=== PATIENT | male | born 1950 | race African-American/Black ===

== ENCOUNTER 2018-04-03 00:02 | Inpatient (IN) | payer OTHER, MEDICAID ==
[~2018-04-03] VITALS: Ht 177.8 cm; Wt 68.7 kg
[2018-04-03] MEDS ORDERED: IPRATROPIUM BROM 0.5 MG/2.5ML INH SOL NEB ONE ×2 (00:15→02:15)
[2018-04-03] MEDS ORDERED: ALBUTEROL SULF 2.5 MG/0.5ML(0.5%) NEB SOLN NEB ONE ×2 (00:15→02:15)
[2018-04-03 00:59] LABS: Basophils # (auto) 0 uL; Basophils % (auto) 0.7 % (0.0-2.0); Eosinophils # (auto) 0.2 uL; Eosinophils % (auto) 3.3 % (0.0-7.0); Hematocrit 39.9 % (41.0-53.0); Hemoglobin 13.1 g/dL (13.5-17.5); Lymphocytes # (auto) 2.5 uL; Lymphocytes % (auto) 34.9 % (10.0-50.0); Mean Corpuscular Hemoglobin 29.5 pg (28.0-32.0); Mean Corpuscular Hgb Conc. 32.8 g/dL (32.0-36.0); Mean Corpuscular Volume 90.2 fL (80.0-100.0); Monocytes # (auto) 0.6 uL; Monocytes % (auto) 8.4 % (0.0-12.0); Neutrophils # (auto) 3.8 uL; Neutrophils % (auto) 52.7 % (37.0-80.0); Nucleated Red Blood Cells % 0.1 %; Platelet Count (auto) 279 10^3/uL (140-450); Red Blood Cells 4.43 10^6/uL (4.5-5.90); Red Cell Distribution Width 15.4 % (11.8-14.3); White Blood Cell 7.3 10^3/uL (4.4-10.8)
[2018-04-03 01:16] LABS: Albumin 3.8 g/dL (3.4-5.0); Anion Gap 9 (5-15); Aspartate Aminotransferase 26 U/L (15-37); BUN/Creatinine Ratio 13.3; Blood Urea Nitrogen 15 mg/dL (7-18); Calcium 8.2 mg/dL (8.5-10.1); Carbon Dioxide 26 mmol/L (21-32); Chloride 104 mmol/L (98-107); GFR African American 83 mL/min; GFR Non-African American 69 mL/min; Glucose 92 mg/dL (74-106); Magnesium 2.7 mg/dL (1.6-2.6); Potassium 3.8 mmol/L (3.5-5.1); Sodium 139 mmol/L (136-145)
[2018-04-03 01:21] LABS: Alanine Aminotransferase 23 U/L (16-61); Alkaline Phosphatase 59 U/L (45-117); Bilirubin, Total 0.3 mg/dL (0.2-1.0); Total Protein 7.6 g/dL (6.4-8.2)
[2018-04-03] MEDS ORDERED: methylPREDNISolone SOD SUCC 125 MG/2 ML VL IV ONE (02:15)
[2018-04-03] MEDS ORDERED: CARISOPRODOL 350 MG TAB PO ONE (02:15)
[2018-04-03] MEDS ORDERED: ACETAMINOPHEN 325 MG TAB PO PRN (06:30)
[2018-04-03] MEDS ORDERED: ALBUTEROL SULF 2.5 MG/0.5ML(0.5%) NEB SOLN NEB PRN (06:30)
[2018-04-03] MEDS ORDERED: ONDANSETRON HCL 4 MG/2 ML VIAL IV PRN (06:30)
[2018-04-03] MEDS ORDERED: TEMAZEPAM 15 MG CAP PO PRN (06:30)
[2018-04-03] MEDS ORDERED: IPRATROPIUM BROM 0.5 MG/2.5ML INH SOL NEB PRN (06:30)
[2018-04-03 08:00] VITALS: BP 125/83
[2018-04-03 08:37] VITALS: BP 129/81
[2018-04-03] MEDS ORDERED: cefTRIAXone 1GM/50ML D5W 50 ML IV SCH (09:00)
[2018-04-03] MEDS: FAMOTIDINE 20 MG TAB PO SCH ×2 (10:39→21:25)
[2018-04-03] MEDS: HYDROcodone-ACET 5/325MG TAB PO PRN ×2 (10:40→20:26)
[2018-04-03 13:00] VITALS: BP 129/82
[2018-04-03] MEDS: IPRATROPIUM BROM 0.5 MG/2.5ML INH SOL NEB SCH ×2 (14:53→18:53)
[2018-04-03] MEDS: ALBUTEROL SULF 2.5 MG/0.5ML(0.5%) NEB SOLN NEB SCH ×2 (14:53→18:53)
[2018-04-03 16:47] VITALS: BP 138/81
[2018-04-03] MEDS: methylPREDNISolone SOD SUCC 40 MG/ML VL IV SCH ×2 (18:23→23:48)
[2018-04-03] MEDS: DOXYCYCLINE 100 MG TAB/CAP PO SCH (21:25)
[2018-04-03 22:17] VITALS: BP 151/81
[2018-04-04 05:03] VITALS: BP 104/76
[2018-04-04 05:21] LABS: Basophils # (auto) 0.1 uL; Basophils % (auto) 0.6 % (0.0-2.0); Eosinophils # (auto) 0 uL; Hematocrit 40.2 % (41.0-53.0); Hemoglobin 13.2 g/dL (13.5-17.5); Lymphocytes % (auto) 9.7 % (10.0-50.0); Mean Corpuscular Hgb Conc. 32.8 g/dL (32.0-36.0); Mean Corpuscular Volume 91.3 fL (80.0-100.0); Monocytes # (auto) 0.2 uL; Monocytes % (auto) 2.2 % (0.0-12.0); Neutrophils # (auto) 9.3 uL; Neutrophils % (auto) 87.5 % (37.0-80.0); Platelet Count (auto) 267 10^3/uL (140-450); Red Cell Distribution Width 15.6 % (11.8-14.3); White Blood Cell 10.7 10^3/uL (4.4-10.8)
[2018-04-04] MEDS: methylPREDNISolone SOD SUCC 40 MG/ML VL IV SCH ×4 (05:44→23:36)
[2018-04-04 05:51] LABS: Albumin 3.7 g/dL (3.4-5.0); Calcium 8.7 mg/dL (8.5-10.1); Potassium 4.5 mmol/L (3.5-5.1)
[2018-04-04 05:55] LABS: BUN/Creatinine Ratio 23.3; Bilirubin, Total 0.5 mg/dL (0.2-1.0); Total Protein 7.6 g/dL (6.4-8.2)
[2018-04-04] MEDS: ALBUTEROL SULF 2.5 MG/0.5ML(0.5%) NEB SOLN NEB SCH ×4 (06:30→18:05)
[2018-04-04] MEDS: IPRATROPIUM BROM 0.5 MG/2.5ML INH SOL NEB SCH ×4 (06:30→18:05)
[2018-04-04 08:15] VITALS: BP 124/74
[2018-04-04] MEDS: FAMOTIDINE 20 MG TAB PO SCH ×2 (10:06→21:30)
[2018-04-04] MEDS: DOXYCYCLINE 100 MG TAB/CAP PO SCH ×2 (10:06→21:30)
[2018-04-04] MEDS: HYDROcodone-ACET 5/325MG TAB PO PRN (10:07)
[2018-04-04 12:34] VITALS: BP 154/87
[2018-04-04] MEDS: ALPRAZolam 0.25 MG TAB PO SCH ×2 (14:36→21:30)
[2018-04-04 16:07] VITALS: BP 134/83
[2018-04-04 22:00] VITALS: BP 155/94
[2018-04-05 05:00] VITALS: BP 121/76
[2018-04-05] MEDS: methylPREDNISolone SOD SUCC 40 MG/ML VL IV SCH ×3 (05:39→21:46)
[2018-04-05] MEDS: ALPRAZolam 0.25 MG TAB PO SCH ×3 (05:40→21:47)
[2018-04-05] MEDS: IPRATROPIUM BROM 0.5 MG/2.5ML INH SOL NEB SCH ×4 (06:33→19:03)
[2018-04-05] MEDS: ALBUTEROL SULF 2.5 MG/0.5ML(0.5%) NEB SOLN NEB SCH ×4 (06:33→19:03)
[2018-04-05 08:55] VITALS: BP 121/68
[2018-04-05] MEDS: DOXYCYCLINE 100 MG TAB/CAP PO SCH ×2 (10:02→21:47)
[2018-04-05] MEDS: FAMOTIDINE 20 MG TAB PO SCH ×2 (10:02→21:47)
[2018-04-05 10:10] LABS: Urine Bacteria NONE SEEN /hpf (None Seen); Urine Blood Negative /uL (Negative); Urine Mucus FEW (None Seen); Urine Specific Gravity 1.033 (1.001-1.035); Urine WBC 3 /hpf (0 - 3)
[2018-04-05] MEDS: HYDROcodone-ACET 5/325MG TAB PO PRN (10:14)
[2018-04-05 12:35] VITALS: BP 146/66
[2018-04-05 16:39] VITALS: BP 118/79
[2018-04-05 21:47] VITALS: BP 119/76
[2018-04-06 05:20] VITALS: BP 115/63
[2018-04-06] MEDS: IPRATROPIUM BROM 0.5 MG/2.5ML INH SOL NEB SCH ×4 (06:01→18:41)
[2018-04-06] MEDS: ALBUTEROL SULF 2.5 MG/0.5ML(0.5%) NEB SOLN NEB SCH ×4 (06:01→18:42)
[2018-04-06] MEDS: ALPRAZolam 0.25 MG TAB PO SCH ×3 (06:41→21:55)
[2018-04-06 08:25] VITALS: BP 136/89
[2018-04-06 08:53] VITALS: BP 134/89
[2018-04-06] MEDS: DOXYCYCLINE 100 MG TAB/CAP PO SCH ×2 (09:20→21:55)
[2018-04-06] MEDS: methylPREDNISolone SOD SUCC 40 MG/ML VL IV SCH ×2 (09:20→21:55)
[2018-04-06] MEDS: FAMOTIDINE 20 MG TAB PO SCH ×2 (09:20→21:55)
[2018-04-06 12:22] VITALS: BP 132/80
[2018-04-06 17:00] VITALS: BP 131/83
[2018-04-06 22:00] VITALS: BP 134/80
[2018-04-07 05:20] VITALS: BP 106/67
[2018-04-07] MEDS: ALPRAZolam 0.25 MG TAB PO SCH ×3 (06:36→21:26)
[2018-04-07] MEDS: ALBUTEROL SULF 2.5 MG/0.5ML(0.5%) NEB SOLN NEB SCH ×4 (07:07→19:32)
[2018-04-07] MEDS: IPRATROPIUM BROM 0.5 MG/2.5ML INH SOL NEB SCH ×4 (07:07→19:33)
[2018-04-07 08:24] VITALS: BP 115/78
[2018-04-07] MEDS: FAMOTIDINE 20 MG TAB PO SCH ×2 (09:59→21:26)
[2018-04-07] MEDS: DOXYCYCLINE 100 MG TAB/CAP PO SCH ×2 (09:59→21:26)
[2018-04-07] MEDS: methylPREDNISolone SOD SUCC 40 MG/ML VL IV SCH ×2 (10:00→21:25)
[2018-04-07 13:00] VITALS: BP 150/80
[2018-04-07] MEDS ORDERED: HYDROcodone-ACET 5/325MG TAB PO PRN (13:45)
[2018-04-07 16:58] VITALS: BP 131/73
[2018-04-07] MEDS: BUDESONIDE (INHALATION) 0.5 MG/2 ML NEB NEB SCH (19:33)
[2018-04-07 21:34] VITALS: BP 150/88
[2018-04-08 04:43] VITALS: BP 132/78
[2018-04-08] MEDS: ALPRAZolam 0.25 MG TAB PO SCH ×2 (06:07→12:48)
[2018-04-08] MEDS: ALBUTEROL SULF 2.5 MG/0.5ML(0.5%) NEB SOLN NEB SCH ×3 (06:58→15:07)
[2018-04-08] MEDS: IPRATROPIUM BROM 0.5 MG/2.5ML INH SOL NEB SCH ×3 (06:58→15:07)
[2018-04-08 08:00] VITALS: BP 123/94
[2018-04-08 08:30] VITALS: BP 123/94
[2018-04-08] MEDS: BUDESONIDE (INHALATION) 0.5 MG/2 ML NEB NEB SCH (10:57)
[2018-04-08 12:24] VITALS: BP 142/96
[2018-04-08] MEDS: methylPREDNISolone SOD SUCC 40 MG/ML VL IV SCH (12:47)
[2018-04-08] MEDS: DOXYCYCLINE 100 MG TAB/CAP PO SCH (12:48)
[2018-04-08] MEDS: FAMOTIDINE 20 MG TAB PO SCH (12:48)
[2018-04-08 15:49] VITALS: BP 142/96
[2018-04-08 16:58] VITALS: BP 141/86
== END 2018-04-08 16:55 | disposition home or self-care (01) | DRG 189 ==
LOC: ER 00:06 → OVERFLOW 00:07 → WEST WING 07:46
PROVIDERS: ADMIT Nurse Practitioner; ATTEND Internal Medicine Pulmonary Disease
DX: J96.20 Acute and chronic respiratory failure, unspecified whether with hypoxia or hypercapnia (principal); J44.1 Chronic obstructive pulmonary disease with (acute) exacerbation; J44.0 Chronic obstructive pulmonary disease with (acute) lower respiratory infection; J20.9 Acute bronchitis, unspecified; F41.9 Anxiety disorder, unspecified; Z85.46 Personal history of malignant neoplasm of prostate; Z92.3 Personal history of irradiation; Z99.81 Dependence on supplemental oxygen
CPT/HCPCS: 36415; 36600; 71045; 80053; 81001; 82805; 83735; 83880; 84154; 84484; 85025; 85379; 93005; 94640; 96365; 96375; G0378; J0696